=== PATIENT | female | born 1990 | race Two or more races ===

== ENCOUNTER 2019-06-25 02:42 | Emergency (ER) | payer OTHER ==
[~2019-06-25] VITALS: Ht 170.2 cm; Wt 93.4 kg
--- NOTE | 2019-06-25 08:40 | NUR ---
Patient discharged to home in stable condition. Written and verbal after care instructions given. Patient verbalizes understanding of instruction.
[2019-06-25 08:41] VITALS: BP 125/70
== END 2019-06-25 08:41 | disposition home or self-care (01) ==
LOC: ER 02:45
DX: R07.89 Other chest pain (principal); F41.9 Anxiety disorder, unspecified; Z98.890 Other specified postprocedural states; Z88.1 Allergy status to other antibiotic agents
CPT/HCPCS: 71045-TC